=== PATIENT | female | born 1980 | race Caucasian/White ===

== ENCOUNTER 2019-08-12 11:56 | Emergency (ER) | payer SELFPAY ==
[2019-08-12] MEDS ORDERED: LIDOCAINE VISCOUS 2% SOLN 15 ML UDC ONE (14:30)
[2019-08-12] MEDS ORDERED: MAGNE/ALUM HYDROXD 30 ML UCUP ONE (14:30)
--- NOTE | 2019-08-12 15:25 | EDPHYS ---
Physician Documentation [facility] Name: Josee Estrella Age: 39 yrs Sex: Female : 1980 Arrival Date: 08/12/2019 Time: 11:58 Bed 23 Private MD: ED Physician Paul Brandt HPI: 08/12 14:31 This 39 yrs old Female presents to ER via Ambulatory with complaints of Sores jmm In Mouth. 14:31 The patient presents with a lesion. Onset: The symptoms/episode began/occurred 1 day(s) jmm ago. Modifying factors: The symptoms are alleviated by nothing. This is a 39 year old female with a history of asthma that presents to the ED with complaints of sore to her mouth. Patient is currently taking bactrim for uti. Denies generalized rash or fever. . 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 - Social history:: Smoking status: Patient uses tobacco products, smokes one-half pack cigarettes per day. - Ebola Screening: : Patient negative for fever greater than or equal to 101.5 degrees Fahrenheit, and additional compatible Ebola Virus Disease symptoms Patient denies exposure to infectious person Patient denies travel to an Ebola-affected area in the 21 days before illness onset No symptoms or risks identified at this time. ROS: 14:31 Constitutional: Negative for fever, chills, and weight loss, Cardiovascular: Negative jmm for chest pain, palpitations, and edema, Respiratory: Negative for shortness of breath, cough, wheezing, and pleuritic chest pain. 14:31 Back: Negative for injury and pain, MS/Extremity: Negative for injury and deformity, Neuro: Negative for headache, weakness, numbness, tingling, and seizure. 14:31 ENT: Positive for oral pain. 14:31 All other systems are negative. Exam: 14:31 Constitutional: This is a well developed, well nourished patient who is awake, alert, jmm and in no acute distress. Head/Face: atraumatic. Eyes: EOMI, no conjunctival erythema appreciated 14:31 Neck: Trachea midline, Supple Chest/axilla: Normal chest wall appearance and motion. Cardiovascular: Regular rate and rhythm. No edema appreciated Respiratory: Normal respirations, no respiratory distress appreciated Abdomen/GI: Non distended, soft Back: Normal ROM Skin: General appearance color normal MS/ Extremity: Moves all extremities, no obvious deformities appreciated, no edema noted to the lower extremities Neuro: Awake and alert, normal gait Psych: Behavior is normal, Mood is normal, Patient is cooperative and pleasant 14:31 ENT: erythematous vesicular lesions noted to the tongue and left posterior pharynx hard palate. Vital Signs: 12:27 BP 112 / 83; Pulse 83; Resp 18; Temp 97; Pulse Ox 96% ; Weight 90.72 kg; Height 5 ft. 1 sv in. (154.94 cm); Pain 10/10; 14:01 BP 125 / 92 RA (auto/lg); Pulse 68; Resp 18; Temp 99.2; Pulse Ox 99% on R/A; Pain 10/10;jp3 15:22 BP 115 / 84; Pulse 67; Resp 17 S; Pulse Ox 98% on R/A; ca1 12:27 Body Mass Index 37.79 (90.72 kg, 154.94 cm) sv MDM: 14:30 Patient medically screened. [facility] 15:23 Data reviewed: vital signs, nurses notes. Counseling: I had a detailed discussion with lianna the patient and/or guardian regarding: the historical points, exam findings, and any diagnostic results supporting the discharge/admit diagnosis, the need for outpatient follow up, to return to the emergency department if symptoms worsen or persist or if there are any questions or concerns that arise at home. ED course: Patient states feeling much better after GI cocktail. I do not suspect madison short at this time. Advised to follow up with pcp and otherwise given strict return precautions. Patient understood and agrees with the plan of care. . Administered Medications: 14:31 Drug: GI Cocktail without - (Maalox Suspension 30 ml, Lidocaine Liquid 2 % 15 ca1 ml) Route: PO; 15:00 Follow up: Response: No adverse reaction; Pain is decreased ca1 Disposition: 08/13 08:56 Co-signature as Attending Physician, Paul Brandt MD I agree with the assessment and kdr plan of care. Disposition: 08/12/19 15:24 Discharged to Home. Impression: Stomatitis and related lesions. - Condition is Stable. - Discharge Instructions: Stomatitis. - Prescriptions for MAGIC MOUTHWASH 1 part benadryl/1 part 2 % viscous lidocaine/1part maalox - take 10 milliliter by ORAL route every 4-6 hours; 200 milliliter. - Medication Reconciliation Form, Thank You Letter, Antibiotic Education, Prescription Opioid Use form. - Follow up: Private Physician; When: 2 - 3 days; Reason: Recheck today's complaints, Continuance of care, Re-evaluation by your physician. Signatures: Karli Willis, RN RN Paul Brandt MD MD [facility] Indra Yeung PA PA [facility] Lidia Quiroz RN RN ca1 Corrections: (The following items were deleted from the chart) 08/12 15:32 15:24 08/12/2019 15:24 Discharged to Home. Impression: Stomatitis and related lesions. ca1 Condition is Stable. Forms are Medication Reconciliation Form, Thank You Letter, Antibiotic Education, Prescription Opioid Use. Follow up: Private Physician; When: 2 - 3 days; Reason: Recheck today's complaints, Continuance of care, Re-evaluation by your physician. lianna
--- NOTE | 2019-08-12 15:25 | ER ---
Nurse's Notes [facility] Name: Josee Estrella Age: 39 yrs Sex: Female : 1980 Arrival Date: 08/12/2019 Time: 11:58 Bed 23 Private MD: Diagnosis: Stomatitis and related lesions Presentation: 08/12 12:25 Presenting complaint: Patient states: mouth sores started Tuesday, pt recently started sv taking Pyridium, tramadol, Sulfa for a kidney infection on . Transition of care: patient was not received from another setting of care. Onset of symptoms was July 2019. Risk Assessment: Do you want to hurt yourself or someone else? Patient reports no desire to harm self or others. Care prior to arrival: None. 12:25 Method Of Arrival: Ambulatory sv 12:25 Acuity: KARTIK 3 sv 14:10 Initial Sepsis Screen: Does the patient meet any 2 criteria? No. Patient's initial ca1 sepsis screen is negative. Does the patient have a suspected source of infection? No. Patient's initial sepsis screen is negative. Triage Assessment: 12:25 General: Appears in no apparent distress. uncomfortable, Behavior is calm, cooperative, sv appropriate for age. Pain: Complains of pain in mouth Pain currently is 10 out of 10 on a pain scale. Neuro: Level of Consciousness is awake, alert, obeys commands, Gait is steady. Respiratory: Respiratory effort is even, unlabored, Respiratory pattern is regular, symmetrical. 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 - Social history:: Smoking status: Patient uses tobacco products, smokes one-half pack cigarettes per day. - Ebola Screening: : Patient negative for fever greater than or equal to 101.5 degrees Fahrenheit, and additional compatible Ebola Virus Disease symptoms Patient denies exposure to infectious person Patient denies travel to an Ebola-affected area in the 21 days before illness onset No symptoms or risks identified at this time. Screenin:07 Abuse screen: Denies threats or abuse. Denies injuries from another. Nutritional ca1 screening: No deficits noted. Tuberculosis screening: No symptoms or risk factors identified. Fall Risk None identified. Assessment: 14:07 General: Appears in no apparent distress. comfortable, Behavior is calm, cooperative, ca1 appropriate for age. Pain: Complains of pain in mouth Pain does not radiate. Pain currently is 10 out of 10 on a pain scale. Quality of pain is described as burning, stinging. Neuro: Level of Consciousness is awake, alert, obeys commands, Oriented to person, place, time, situation. Cardiovascular: Heart tones S1 S2 present Capillary refill < 3 seconds Patient's skin is warm and dry. Respiratory: Airway is patent Respiratory effort is even, unlabored, Respiratory pattern is regular, symmetrical, Breath sounds are clear bilaterally. GI: Abdomen is round non-distended, Bowel sounds present X 4 quads. Abd is soft and non tender X 4 quads. : No deficits noted. No signs and/or symptoms were reported regarding the genitourinary system. EENT: Throat is clear Reports difficulty swallowing. EENT: Oral mucosa is moist. Lesions noted. lesions on corners of the mouth and tongue. Derm: Skin is intact, is healthy with good turgor, Skin is pink, warm \T\ dry. Musculoskeletal: Circulation, motion, and sensation intact. Capillary refill < 3 seconds. 15:22 Reassessment: Patient appears in no apparent distress at this time. Patient and/or ca1 family updated on plan of care and expected duration. Pain level reassessed. Patient is alert, oriented x 3, equal unlabored respirations, skin warm/dry/pink. Patient states feeling better. Vital Signs: 12:27 BP 112 / 83; Pulse 83; Resp 18; Temp 97; Pulse Ox 96% ; Weight 90.72 kg; Height 5 ft. 1 sv in. (154.94 cm); Pain 10/10; 14:01 BP 125 / 92 RA (auto/lg); Pulse 68; Resp 18; Temp 99.2; Pulse Ox 99% on R/A; Pain 10/10;jp3 15:22 BP 115 / 84; Pulse 67; Resp 17 S; Pulse Ox 98% on R/A; ca1 12:27 Body Mass Index 37.79 (90.72 kg, 154.94 cm) sv ED Course: 11:58 Patient arrived in ED. rg4 12:26 Triage completed. sv 12:27 Arm band placed on Patient placed in waiting room, Patient notified of wait time. sv 13:57 Lidia Quiroz, RN is Primary Nurse. ca1 14:00 Bed in low position. Call light in reach. Side rails up X 1. Warm blanket given. Verbal jp3 reassurance given. Pulse ox on. NIBP on. 14:07 No provider procedures requiring assistance completed. ca1 14:16 Indra Yeung PA is PHCP. [facility] 14:16 Paul Brandt MD is Attending Physician. [facility] 15:22 Patient did not have IV access during this emergency room visit. ca1 Administered Medications: 14:31 Drug: GI Cocktail without - (Maalox Suspension 30 ml, Lidocaine Liquid 2 % 15 ca1 ml) Route: PO; 15:00 Follow up: Response: No adverse reaction; Pain is decreased ca1 Outcome: 15:24 Discharge ordered by MD. [facility] 15:32 Discharged to home ambulatory, with significant other. ca1 15:32 Condition: stable 15:32 Discharge instructions given to patient, Instructed on discharge instructions, follow up and referral plans. medication usage, Demonstrated understanding of instructions, follow-up care, medications, Prescriptions given X 1. 15:32 Patient left the ED. ca1 Signatures: Karli Willis, RN RN Indra Yeung PA PA jmm Garcia, Rubi rg4 Corbin Gambino jp3 Lidia Quiroz, MARILUZ RN ca1
[2019-08-12 16:56] VITALS: TEMP 99.2
[2019-08-12 16:58] VITALS: BP 115/84; O2SAT 98
== END 2019-08-12 15:32 | disposition home or self-care (01) ==
LOC: ER 11:56
DX: K12.1 Other forms of stomatitis (principal); F17.210 Nicotine dependence, cigarettes, uncomplicated; Z88.0 Allergy status to penicillin; Z88.6 Allergy status to analgesic agent; Z91.09 Other allergy status, other than to drugs and biological substances
CPT/HCPCS: 99283